=== PATIENT | female | born 1975 | race Two or more races ===

== ENCOUNTER 2023-12-12 23:42 | Emergency (ER) | payer MEDICAID, OTHER ==
[~2023-12-12] VITALS: Ht 149.9 cm; Wt 94.9 kg
[2023-12-12 23:58] VITALS: BP 148/87; PULSE 87; RESP 19; TEMP 98.5
[2023-12-13 03:05] VITALS: O2SAT 96
[2023-12-13] MEDS: diphenhdrAMINE HCL 50 MG/1 ML VL IM ONE (03:13)
[2023-12-13] MEDS: DexAMETHasone SOD PHOS 10MG/1ML VIAL INJ IM ONE (03:13)
== END 2023-12-13 03:59 | disposition home or self-care (01) ==
LOC: ER 23:42
DX: T78.40XA Allergy, unspecified, initial encounter (principal); I10 Essential (primary) hypertension; X58.XXXA Exposure to other specified factors, initial encounter
CPT/HCPCS: 96372; 99284; J1100; J1200; A4565